=== PATIENT | female | born 2000 | race African-American/Black ===

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

== ENCOUNTER 2020-06-19 12:09 | Emergency (ER) | payer BC ==
[~2020-06-19] VITALS: Ht 177.8 cm; Wt 74.8 kg
[2020-06-19] MEDS ORDERED: CLARAVIS20 MG PO (12:29)
[2020-06-19] MEDS ORDERED: SPIRONOLACTONE50 MG PO (12:29)
[2020-06-19] MEDS ORDERED: NEO-POLYMYXIN-H10 ML OTIC (13:33)
[2020-06-19 13:47] VITALS: BP 132/74
== END 2020-06-19 13:51 | disposition home or self-care (01) ==
LOC: ER 12:09
DX: T16.1XXA Foreign body in right ear, initial encounter (principal); Z79.899 Other long term (current) drug therapy; X58.XXXA Exposure to other specified factors, initial encounter; Y93.89 Activity, other specified; Y92.89 Other specified places as the place of occurrence of the external cause; Y99.8 Other external cause status